=== PATIENT | female | born 1965 | race Caucasian/White ===

== ENCOUNTER 2017-08-23 09:54 | Outpatient (CLI) | payer BC ==
[2017-08-23 11:50] LABS: Hemoglobin 14.5 g/dL (12.0-16.0); Mean Corpuscular HGB CONC 33.1 g/dL (32.0-36.0); Mean Corpuscular Hemoglobin 30.7 pg (27.0-31.0); Mean Corpuscular Volume 92.7 fL (78.0-98.0); Mean Platelet Volume 7.2 fL (7.4-10.4); Platelet Count 274 thou/uL (130-400); RBC Distribution Width 11.9 % (11.5-14.5); Red Blood Cell (RBC) Count 4.73 mill/uL (4.20-5.40); White Blood Cell (WBC) Count 3.8 thou/uL (4.8-10.8)
[2017-08-23 11:54] LABS: BHCG - Serum Negative (NEGATIVE); Pregs Control Background? CLEAR/WHITE (CLR/WHITE); Pregs Control Bar Appear? YES (CONTROL BAR)
[2017-08-23 12:11] LABS: Anion Gap 9 mmol/L (10-20); BUN (Urea Nitrogen) 9 mg/dL (7.0-18.7); Calc. Creatinine Clearance 0 mL/min (70-130); Calcium 8.9 mg/dL (7.8-10.44); Carbon Dioxide 26 mmol/L (22-29); Chloride 106 mmol/L (98-107); Estimated GFR-MDRD 77; Glucose 91 mg/dL (70-105); Potassium 3.9 mmol/L (3.5-5.1); Sodium 137 mmol/L (136-145)
== END 2017-08-23 09:55 | disposition home or self-care (01) ==
LOC: LABBT 09:54
PROVIDERS: ATTEND Obstetrics & Gynecology
DX: Z01.812 Encounter for preprocedural laboratory examination (principal); N92.0 Excessive and frequent menstruation with regular cycle; D25.9 Leiomyoma of uterus, unspecified
CPT/HCPCS: 80048; 84703; 85027; 86850; 86900; 86901

== ENCOUNTER 2017-08-23 10:15 | Inpatient (IN) | payer BC ==
[2017-08-23 11:02] VITALS: BMI 26.4
[2017-08-26] MEDS ORDERED: Gabapentin 300 MG CAP ONE (06:07)
[2017-08-26] MEDS ORDERED: Famotidine/PF 20 mg/2ml Vial ONE (06:08)
[2017-08-26] MEDS ORDERED: CEFAZOLIN/Water 2 GM/20 ML SYRINGE ONE (06:09)
[2017-08-26] MEDS ORDERED: CeleCOXIB 100 MG CAP ONE (06:09)
[2017-08-26] MEDS ORDERED: Ropivacaine HCl/PF 750 ML in Premix Bag 1 BAG NERVE BLCK SCH (06:30)
[2017-08-26] MEDS ORDERED: Bupivacaine HCl 0.5%/Epinephrine 1:200,000/PF 30 ml Vial ONE (06:33)
[2017-08-26] MEDS ORDERED: Fentanyl 100 MCG/2 ML VIAL ONE ×3 (07:09→10:58)
[2017-08-26] MEDS ORDERED: Midazolam HCl 2 mg/2 ml Vial ONE (07:14)
[2017-08-26] MEDS ORDERED: Heparin 5,000 UNITS/ML VIAL ONE (08:43)
[2017-08-26] MEDS ORDERED: Calcium Chloride 1 GM/10 ML Abboject SYRINGE ONE (08:43)
[2017-08-26] MEDS ORDERED: Thrombin 5000 UNITS/5 ML VIAL ONE (08:44)
[2017-08-26] MEDS ORDERED: diphenhydrAMINE 25 MG CAP PO PRN (10:36)
[2017-08-26] MEDS ORDERED: HYDROcodone/Acetaminophen 5/325 mg Tablet PO PRN (10:36)
[2017-08-26] MEDS ORDERED: Simethicone Chewable 80 MG TAB PO PRN (10:36)
[2017-08-26] MEDS ORDERED: Bisacodyl 10 MG SUPP PR PRN (10:36)
[2017-08-26] MEDS ORDERED: Ketorolac Tromethamine 30 MG/ML VIAL IVP PRN (11:25)
[2017-08-26] MEDS ORDERED: Promethazine HCl 25 MG/ML VIAL SLOW IVP PRN (11:25)
[2017-08-26] MEDS ORDERED: Promethazine HCl 25 MG/ML VIAL IM PRN (11:25)
[2017-08-26] MEDS ORDERED: Ondansetron HCl/PF 4 MG/2 ML Vial IVP PRN (11:25)
[2017-08-26] MEDS ORDERED: Meperidine HCl/PF 25 MG/ML VIAL SLOW IVP PRN (11:25)
[2017-08-26] MEDS: Lactated Ringer's 1,000 ML IV SCH ×2 (11:35→21:25)
--- NOTE | 2017-08-26 13:54 | OP ---
PREOPERATIVE DIAGNOSES: 1. Abnormal uterine bleeding. 2. Uterine fibroid. 3. Dysmenorrhea. POSTOPERATIVE DIAGNOSES: 1. Abnormal uterine bleeding. 2. Uterine fibroid 3. Dysmenorrhea. PROCEDURES: Robotic assisted total laparoscopic hysterectomy with bilateral salpingo-oophorectomy an d extensive lysis of adhesions. SURGEON: Suyapa Gordon D.O. VOTING MACHINE REPAIRER: Namrata Connolly M.D. COMPLICATIONS: None. ESTIMATED BLOOD LOSS: 100 mL IV FLUIDS: 1500 mL URINE OUTPUT: 300 mL FINDINGS: Normal-appearing external genitalia, normal vaginal and cervical epithelium. Uterus appro ximately 7 cm in length with multiple fibroids, several small pedunculated fibroid and a large basketball referee ior fibroid approximately 6 cm. A normal-appearing fallopian tubes and ovaries bilaterally. A trans peritoneal identification of the ureters bilaterally noting peristalsis. Omental adhesions completel y encasing the uterus and bladder up to the anterior abdominal wall. ANESTHESIA: General. INDICATIONS FOR THE PROCEDURE: Ms. Smitha Craig is a 51-year-old G3, P2, who presented with complaints of chronic dysmenorrhea and had a known fibroid uterus. The patient underwent a repeat sonography an d endometrial biopsy, which was benign. She was counseled on her treatment options and had failed me dical and treatment with , desired definitive surgical therapy. The patient was counseled on op tion of ovarian conservation versus oophorectomy and decided to have a bilateral salpingo-oophorectom y at the time of her hysterectomy. PROCEDURE IN DETAIL: The patient was brought to the operating room. She was placed under general an esthesia. The patient was given Ancef preoperatively for surgical prophylaxis. She was placed in do rsal lithotomy position using Vikas stirrups and her arms were tucked and appropriately secured for r obotic surgery. The patient was then prepped and draped in a sterile fashion. An official timeout w as performed. Single-sided speculum was placed in the vagina. The anterior lip of the cervix was gr asped using a single tooth tenaculum. The cervix was sequentially dilated using Gonzales dilators. The uterus sounded to approximately 7 cm. CLOVER uterine manipulator was inserted and appropriately secure d to the ectocervix. Rodríguez catheter was placed and the bladder was drained and a syringe was placed for later backfill if needed. Gloves were changed and attention was turned to the abdominal portion. An umbilical incision was made and the Veress needle was inserted into the peritoneal cavity. The peritoneal cavity was insufflated, noting a normal pressure. The 12 mm trocar was then placed at thi s site and the pelvis was then evaluated noting the findings above. The patient was placed in steep Trendelenburg position. Upon entrance into the peritoneal cavity using laparoscopic camera, these om ental adhesions were immediately noted going up to the abdominal wall and completely encasing the pel fide anatomy. The assistant store manager sales trocars were then placed using two 8 mm trocars and an 11 mm assist troca r. All were placed using local anesthesia and under direct visualization. The laparoscopic scissors were inserted to begin dissection of the adhesions on the anterior abdominal wall. The tip of the l aparoscopic scissors fell off during this process. They were then grasped with grasper and removed f rom the abdomen. There was no injury. Due to lack of visualization of the adhesions, at this point, the camera port was then removed. Further cephalad and a new incision was made above the previous t rocar and 12 mm trocar was removed and then replaced at this site allowing for improved visualization . The fascia at the initial site was then closed to maintain pneumoperitoneum. Again, the patient w as placed in steep Trendelenburg position. At this point, the adhesions along the anterior abdominal wall were able to be visualized better and they were able to be taken down using monopolar and bipol ar until the level of the pelvis was able to be reached. The attention was then turned to the left a spect of the uterus. The left ureter was notified and was seen transperitoneally. Therefore, the le ft IP ligament was then coagulated and transected well away from the ureter. The broad ligament was then entered at this point and the posterior aspect of the broad ligament was carried down towards th e level of the uterosacral ligament. There was a large posterior fibroid that was encompassing a lar ge portion of the left aspect, therefore the peritoneum was undermined at this point and carried down towards the inferior aspect of the fibroid staying well away from the ureter. The left round ligame nt was then coagulated and transected allowing entry into the broad ligament anteriorly. The anterio r aspect of the broad ligament was undermined and transected slightly; however, it was difficult due to the fibroids on the left side. Therefore, attention was then turned over to the right aspect. Th e right ureter was also identified transperitoneally well away from the IP ligament, therefore the IP ligament was then coagulated and transected. The right round ligament was then coagulated and trans ected. This allowed entry into the broad ligament on the right aspect. The filmy adhesions of the b road ligament was then coagulated and transected allowing skeletonization of the right uterine vessel s. The posterior leaf of the broad ligament was undermined and dissected down towards the level of t he uterosacral ligament anteriorly. There was a dense scar from her previous C-sections, which requi red very meticulous dissection. The right uterine vessels were then skeletonized to the point where they could be cauterized multiple times; however, not yet transected. Attention was then turned back over to the left aspect where the left broad ligament was then further developed. There were omenta l adhesions along the aspect of the scar from the bladder to the uterus, which required transection t o allow for improved visualization of the scar along with the dome of the bladder until the lower [place] segment was meticulously dissected on the left aspect as well using cautery and push technique e ventually allowing the bladder to fall inferiorly. The bladder was backfilled to assure the appropri ate plane of dissection. The uterine vessel was then coagulated slightly laterally to the colpotomy cup as the ureter could be identified much inferiorly as the fibroid on the left side distorted the n atural course of the uterine vessel. The colpotomy was inserted in anterior fashion and carried aaron g on the left aspect of the uterus and then working posteriorly and then carried over to the right as pect of the uterus and the uterine vessels were then cauterized on the right side and then transected . The colpotomy was not yet completed. A myomectomy was performed at the posterior fibroid to allow for removal vaginally. Once the myomectomy was performed, then the posterior aspect of the cup was able to be identified and the colpotomy was completed. The uterus, cervix, fallopian tubes, ovaries and fibroid were delivered vaginally without complications. The pelvis was irrigated and cleared of all clot and debris. The vaginal cuff was closed in a running fashion using #1 Stratafix suture. Th e pelvis was again irrigated and cleared of all clot and debris. Plasmafix was then placed along the cuff. The On-Q pump was then inserted and placed in the pelvic cavity. The robot was then undocked from the patient. The patient was placed back in supine position. The abdomen was deflated and tro cars were removed. The fascia at the two sites were tied and the two midline sites were closed using #0 Vicryl and the skin was closed using 4-0 Monocryl and Dermabond at all sites. The patient was ex tubated without difficulty. There were no complications. All counts were correct x2.
[2017-08-26] MEDS ORDERED: PROPOFOL 200 MG/20 ML VIAL ONE (14:44)
[2017-08-26] MEDS: Ibuprofen 800 MG TAB PO SCH ×2 (15:56→22:11)
[2017-08-26] MEDS: HYDROcodone/Acetaminophen 5/325 mg Tablet PO PRN ×2 (16:11→20:14)
[2017-08-27] MEDS: Lactated Ringer's 1,000 ML IV SCH (02:59)
[2017-08-27 05:16] LABS: #Eosinphils 0.2 thou/uL (0.0-0.7); #Lymphocytes 1.9 thou/uL (1.20-3.40); #Monocytes 0.7 thou/uL (0.11-0.59); %Basophils 0.4 % (0.0-1.0); %Eosinophils 2.1 % (0.0-10.0); %Lymphocytes 24.4 % (21.0-51.0); %Monocytes 8.5 % (0.0-10.0); %Neutrophils 64.5 % (42.0-75.0); Hemoglobin 12.4 g/dL (12.0-16.0); Mean Corpuscular HGB CONC 32.6 g/dL (32.0-36.0); Mean Corpuscular Hemoglobin 30.4 pg (27.0-31.0); Mean Corpuscular Volume 93.4 fL (78.0-98.0); Mean Platelet Volume 7.2 fL (7.4-10.4); Platelet Count 241 thou/uL (130-400); RBC Distribution Width 11.9 % (11.5-14.5); Red Blood Cell (RBC) Count 4.08 mill/uL (4.20-5.40); White Blood Cell (WBC) Count 7.8 thou/uL (4.8-10.8)
[2017-08-27 05:35] LABS: Anion Gap 10 mmol/L (10-20); BUN (Urea Nitrogen) 8 mg/dL (7.0-18.7); Calc. Creatinine Clearance 109 mL/min (70-130); Calcium 8.2 mg/dL (7.8-10.44); Carbon Dioxide 25 mmol/L (22-29); Chloride 108 mmol/L (98-107); Estimated GFR-MDRD 90; Glucose 94 mg/dL (70-105); Potassium 3.8 mmol/L (3.5-5.1); Sodium 139 mmol/L (136-145)
[2017-08-27] MEDS: Ibuprofen 800 MG TAB PO SCH (06:14)
[2017-08-27 07:42] VITALS: BP 117/65; TEMP 98.6
--- NOTE | 2017-08-27 10:31 | PRG ---
DATE OF SERVICE: 08/27/2017 HISTORY OF PRESENT ILLNESS: Postoperative day #1 status post a robotic assisted total laparoscopic hysterectomy with a bilateral salpingo-oophorectomy and extensive lysis of adhesions. SUBJECTIVE: The patient reports good pain control this morning. She denies any vaginal bleeding. T he patient is voiding, ambulating and passing flatus. She is tolerating a general diet and her pain is controlled with oral medications. OBJECTIVE: VITAL SIGNS: Stable, afebrile. CARDIOVASCULAR: Regular rate and rhythm. RESPIRATORY: Unlabored breathing. Clear to auscultation bilaterally. ABDOMEN: Soft, mild distention and mild tenderness to palpation, as expected postoperatively. Lapar oscopic incisions are clean, dry and intact. ON-Q pump appropriately secured in place. Normal activ e bowel sounds in all 4 quadrants. EXTREMITIES: No edema. Negative Homans'. LABORATORY DATA: White blood cell 7.8, hemoglobin 12.4, hematocrit 38.1, platelet 241, creatinine is 0.69. ASSESSMENT: Postoperative day #1 status post a robotic assisted total laparoscopic hysterectomy with bilateral salpingo-oophorectomy and extensive lysis of adhesions. PLAN: The patient is doing well postoperatively. She is meeting all requirements for discharge. Pl an to discharge home this morning with follow up in 2 weeks.
--- NOTE | 2017-08-27 14:37 | DIS ---
DATE OF ADMISSION: 08/26/2017 DATE OF DISCHARGE: 08/27/2017 ADMISSION DIAGNOSIS: Status post robotic assisted total laparoscopic hysterectomy with a bilateral s alpingo-oophorectomy. DISCHARGE DIAGNOSIS: Status post robotic assisted total laparoscopic hysterectomy with a bilateral s alpingo-oophorectomy. ADMISSION AND DISCHARGE PHYSICIAN: Suyapa Gordon D.O BRIEF HOSPITAL COURSE: Mr. Smitha Craig is a 51-year-old female status post robotic assisted total lapa roscopic hysterectomy with bilateral salpingo-oophorectomy on postoperative day #1 and she is doing w ell. Her intraoperative and postoperative course have been benign. The patient was meeting all requ irements for discharge. She was voiding, ambulating, passing flatus, tolerating a general diet and h er pain is controlled with oral medications. Follow up in 2 weeks. ACTIVITY RESTRICTIONS: Pelvic rest. No heavy lifting, pushing or pulling for 6 weeks. CODE: FULL. DIET: Regular. MEDICATIONS: 1. [place] 5/325 one tablet q.6 hours p.r.n. pain, #30 with 0 refills. 2. Motrin 800 mg 1 tablet every 8 hours p.r.n. pain, #60 with 0 refills.
== END 2017-08-27 09:25 | disposition home or self-care (01) | DRG 743 ==
LOC: SURG A 08-26 05:48 → 3SW 08-26 10:55
PROVIDERS: ADMIT Obstetrics & Gynecology; ATTEND Obstetrics & Gynecology
PROC: 0UT94ZZ Resection of Uterus, Percutaneous Endoscopic Approach (ICD-10-PCS; principal; 2017-08-26)
PROC: 0UT24ZZ Resection of Bilateral Ovaries, Percutaneous Endoscopic Approach (ICD-10-PCS; 2017-08-26)
PROC: 0UT74ZZ Resection of Bilateral Fallopian Tubes, Percutaneous Endoscopic Approach (ICD-10-PCS; 2017-08-26)
PROC: 8E0W4CZ Robotic Assisted Procedure of Trunk Region, Percutaneous Endoscopic Approach (ICD-10-PCS; 2017-08-26)
DX: D25.1 Intramural leiomyoma of uterus (principal); N92.1 Excessive and frequent menstruation with irregular cycle
CPT/HCPCS: 36415; 80048; 85025; 88307; J0131; J0670; J1644; J2250; J2270; J2704; J2795; J3010; S0028